=== PATIENT | female | born 2000 | race Caucasian/White ===

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

== ENCOUNTER 2018-06-20 11:35 | Emergency (ER) | payer OTHER ==
[2018-06-20 11:51] VITALS: BMI 32.9
[2018-06-20 12:34] LABS: EPI CELLS 8.3 /HPF (0-5/HPF); PH,URINE 7.5 (5.0-8.0); URINE APPEARANCE CLEAR; URINE BACTERIA 279.6 /hpf (NEGATIVE); URINE BILIRUBIN NEGATIVE (NEGATIVE); URINE CASTS 3 /lpf (0-8); URINE COLOR YELLOW; URINE GLUCOSE (UA) NEGATIVE (NEGATIVE); URINE KETONE NEGATIVE (NEGATIVE); URINE LEUK ESTERASE 1+ (NEGATIVE); URINE NITRITE NEGATIVE (NEGATIVE); URINE PROTEIN NEGATIVE (NEGATIVE); URINE RBC 1 /hpf (0-4); URINE UROBILINOGEN 0.2 mg/dL (0.2-1.0); URINE WBC 6 /hpf (0-5)
--- NOTE | 2018-06-20 12:45 | PDOC ---
History of Present Illness - General Chief Complaint: Pain Stated Complaint: THORACIC PAIN Time Seen by Provider: 06/20/18 12:42 History Source: Patient Exam Limitations: No Limitations - History of Present Illness Initial Comments: 17 yo F w no reported pmh presents to the ER with sudden onset mid back- pain since last night which woke her up from sleep. The pain has been constant and she rates it as 6/10 without radiation. She states it feels like a sharp pain in character. She denies any associated such as shortness of breath, chest pain, abdominal pain, nausea, vomiting, blurry vision or neck pain. She states she experienced very mild bloody vaginal discharge 4 days ago before the back pain began. The patient does not have an OB doc and gets her pre- vitamins from her PCP Dr. Jaramillo. LMP: Mid December PCP: Yoselyn Jaramillo PSH: None reported Social Hx: Denies smoking, Drinking, or other substance usage. Allergies: Cheese Past History - Past Medical History Allergies/Adverse Reactions: Allergies Allergy/AdvReac Type Severity Reaction Status Date / Time cheese Allergy Verified 06/20/18 11:45 No Known Drug Allergies Allergy Verified 06/20/18 11:45 Home Medications: Ambulatory Orders Cephalexin Monohydrate [Keflex -] 500 mg PO BID 7 Days #14 capsule 06/20/18 Asthma: No COPD: No DVT: No Diabetes: No - Reproductive History (#): 2 Para: 0 Cervical CA: No Dysfunctional Uterine Bleeding: No Ectopic : No Endometrial CA: No Polycystic Ovaries: No Therapeutic (s) & number: No Tubal Ligation: No Spontaneous : 1 - Immunization History Immunization Up to Date: Yes - Suicide/Smoking/Psychosocial Hx Smoking History: Never smoked Have you smoked in the past 12 months: No Hx Alcohol Use: No Drug/Substance Use Hx: No Substance Use Type: None Review of Systems - Review of Systems Able to Perform ROS?: Yes Constitutional: No: Chills, Diaphoresis, Fever, Loss of Appetite HEENTM: No: Eye Pain, Blurred Vision Respiratory: No: Shortness of Breath Cardiac (ROS): No: Chest Pain, Palpitations ABD/GI: No: Abdominal Distended, Difficulty Swallowing, Nausea, Poor Appetite, Poor Fluid Intake, Vomiting : No: Burning, Dysuria, Discharge, Frequency, Flank Pain Musculoskeletal: Yes: Back Pain Integumentary: No: Bruising, Change in Color Neurological: No: Headache, Numbness, Paresthesia Psychiatric: No: Anxiety, Depression, Frequent Crying Endocrine: No: Excessive Sweating, Flushing Hematologic/Lymphatic: No: Anemia, Blood Clots, Easy Bleeding *Physical Exam - Vital Signs Last Vital Signs Temp Pulse Resp BP Pulse Ox 97.7 F 84 18 124/74 99 06/20/18 11:49 06/20/18 11:49 06/20/18 11:49 06/20/18 11:49 06/20/18 11:49 - Physical Exam General Appearance: Yes: Nourished, Appropriately Dressed. No: Apparent Distress HEENT: positive: EOMI, DEBBIE, Normal ENT Inspection, Normal Voice, Symmetrical Neck: positive: Supple Respiratory/Chest: positive: Lungs Clear, Normal Breath Sounds. negative: Respiratory Distress Cardiovascular: positive: Regular Rhythm, Regular Rate, S1, S2 Vascular Pulses: Dorsalis-Pedis (R): 2+, Doralis-Pedis (L): 2+ Gastrointestinal/Abdominal: positive: Normal Bowel Sounds, Soft, Other (Gravid) Rectal Exam: positive: deferred Lymphatic: negative: Adenopathy Musculoskeletal: positive: Normal Inspection. negative: CVA Tenderness Extremity: positive: Normal Capillary Refill, Normal Inspection, Normal Range of Motion Integumentary: positive: Normal Color, Dry, Warm Neurologic: positive: shake splitter II-XII NML intact, Fully Oriented, Alert, Normal Mood/ Affect, Normal Response, Motor Strength 5/5 ED Treatment Course - ADDITIONAL ORDERS Additional order review: Laboratory Results 06/20/18 11:51 Urine Color Yellow Urine Appearance Clear Urine pH 7.5 D Ur Specific [place] 1.020 Urine Protein Negative Urine Glucose (UA) Negative Urine Ketones Negative Urine Blood Negative Urine Nitrite Negative Urine Bilirubin Negative Urine Urobilinogen 0.2 Ur Leukocyte Esterase 1+ H Urine WBC (Auto) 6 Urine RBC (Auto) 1 Urine Casts (Auto) 3 U Epithel Cells (Auto) 8.3 Urine Bacteria (Auto) 279.6 Medical Decision Making - Medical Decision Making 17 yo F w no reported pmh presents to the ER with sudden onset mid back- pain since last night which woke her up from sleep. The pain has been constant and she rates it as 6/10 without radiation. She states it feels like a sharp pain in character. She denies any associated such as shortness of breath, chest pain, abdominal pain, nausea, vomiting, blurry vision or neck pain. She states she experienced very mild bloody vaginal discharge 4 days ago before the back pain began. The patient does not have an OB doc and gets her pre- vitamins from her PCP Dr. Jaramillo. VS: WNl DDx IBNLT: MSK back pain, UTI/Pylo, renal colic, PE, distress Plan: UA/UC, US, tylenol, re-assess. Patient can be PERCed out. Wells score 0 UA shows micro UTI - will treat with keflex an DC - Patient sent up to OB to have US and make sure there is no distress. *DC/Admit/Observation/Transfer Diagnosis at time of Disposition: UTI (urinary tract infection) - Discharge Dispostion Disposition: HOME Condition at time of disposition: Stable Decision to Admit order: No - Prescriptions Prescriptions: Cephalexin Monohydrate [Keflex -] 500 mg PO BID 7 Days #14 capsule - Referrals Referrals: Camilo Birmingham MD [Staff Physician] - - Patient Instructions Printed Discharge Instructions: Urinary Tract Infection Additional Instructions: You came into the ER with lower back pain. We looked at your urine which showed you have a UTI. We are sending an antibiotic to your pharmacy - keflex - for you to take twice a day for the next 7 days. Please make sure to follow up with an [facility] doctor in the next 24 to 48 hours to make sure baby is doing well and being taken care of. Come back to the ER immediately if your pain worsens, you become short of breath , or have any other new or worsening concerns. Thank you for coming to the [facility] ER. We hope you feel better soon! Follow up with your OB in [facility] Friday. Return to L&D if you experience any of the following: -regular contractions -decreased movement -vaginal bleeding -your waterbreaks call with any questions or concerns [phone]. Print Language: [place] - Post Discharge Activity
[2018-06-20] MEDS ORDERED: ACETAMINOPHEN 325 MG TABLET (FP) PO ONE (13:00)
[2018-06-20] MEDS ORDERED: ACETAMINOPHEN 325 MG TABLET (FP) ONE (13:04)
[2018-06-20 14:57] VITALS: BP 118/62; PULSE 77; TEMP 98.3
--- NOTE | 2018-06-20 15:00 | PDOC ---
Documentation entered by Tara Jhaveri SCRIBE, acting as scribe for Marciano Garcia MD. Marciano Garcia MD: This documentation has been prepared by the Shakila mcdermott Sammi, SCRIBE, under my direction and personally reviewed by me in its entirety. I confirm that the documentation accurately reflects all work, treatment, procedures, and medical decision making performed by me. Attending Attestation - Resident Resident Name: Neftali Amaya - ED Attending Attestation I have performed the following: I have examined & evaluated the patient, The case was reviewed & discussed with the resident, I agree w/resident's findings & plan - HPI HPI: 06/20/18 13:21 Healthy 17-year-old female at 26 weeks gestation uncomplicated to date, no significant past medical history presents with localized low back pain since yesterday. Patient awoke with a sharp pinpoint discomfort to her lower thoracic/ upper lumbar region, very localized to the midline, worse with sitting and laying down, relieved with ambulation. There is no associated chest pain/ shortness of breath/abdominal complaints/bleeding/discharge/dysuria/frequency/ hematuria. Did not take anything for pain, presents for evaluation. Denies any fall or strain or heavy lifting, no history of recurring back pain. - Physicial Exam PE: 06/20/18 13:23 Vital signs stable, heart rate normal O2 sat 100% on room air Seated comfortably in chair, playing with her boyfriend Speech is clear, no tachypnea Heart is regular, lungs are clear No skin bruising or swelling, area of discomfort around T10 has no reproducible tenderness No edema or calf tenderness - Medical Decision Making 06/20/18 13:24 17-year-old female at 26 weeks gestation presents with atraumatic very localized low back discomfort without any cardiopulmonary complaints or red flags on history or physical exam to suggest infectious or vascular process. Urinalysis shows positive leuk esterase and white blood cells, urine culture sent and we'll treat empirically for UTI and Tylenol given for pain To L+D for monitoring
== END 2018-06-20 15:18 | disposition home or self-care (01) ==
LOC: JER 11:35
DX: O26.892 Other specified pregnancy related conditions, second trimester (principal); O23.32 Infections of other parts of urinary tract in pregnancy, second trimester; Z3A.26 26 weeks gestation of pregnancy
CPT/HCPCS: 81003; 84703; 87086; 99282-25

== ENCOUNTER 2018-09-03 21:41 | Emergency (ER) | payer OTHER ==
[2018-09-04 00:05] VITALS: BP 122/74; PULSE 89; TEMP 98.1
== END 2018-09-04 00:45 | disposition home or self-care (01) ==
LOC: JER 21:41
DX: O26.893 Other specified pregnancy related conditions, third trimester (principal); Z3A.36 36 weeks gestation of pregnancy
CPT/HCPCS: 99281-25

== ENCOUNTER 2020-05-21 12:00 | Inpatient (IN) | payer OTHER ==
[2020-05-21] MEDS ORDERED: AMPICILLIN SODIUM 2 GM VIAL ONE (13:56)
[2020-05-21] MEDS ORDERED: AMPICILLIN - 2 GM in SODIUM CHLORIDE 100 ML IVPB ONE (14:00)
[2020-05-21 14:04] LABS: BASO % 0.5 % (0-2.0); EOS % 0.4 % (0-4.5); HEMATOCRIT 39.2 % (32.4-45.2); HEMOGLOBIN 13.1 GM/dL (10.7-15.3); LYMPH % 17.9 % (8-40); MCH 28.1 pg (25.7-33.7); MCHC 33.4 g/dl (32.0-36.0); MEAN CELL VOLUME 84.3 fl (80-96); MEAN PLT VOLUME 9.4 fl (7.5-11.1); MONO % 4.4 % (3.8-10.2); NEUT % 76.8 % (42.8-82.8); PLATELET COUNT 191 K/MM3 (134-434); RBC 4.64 M/mm3 (3.60-5.2); RDW 14.6 % (11.6-15.6); WHITE BLOOD COUNT 12.6 K/mm3 (4.0-10.0)
[2020-05-21 14:10] LABS: INR 0.89 (0.83-1.09)
[2020-05-21 14:12] LABS: ACTIVATED PTT 28.5 SECONDS (25.2-36.5)
[2020-05-21 14:23] LABS: POTASSIUM 3.8 mmol/L (3.5-5.1)
[2020-05-21 14:24] LABS: BLOOD UREA NITROGEN 11.2 mg/dL (7-18); CALCIUM 9.5 mg/dL (8.5-10.1)
[2020-05-21 14:28] LABS: CREATININE 0.6 mg/dL (0.55-1.3)
[2020-05-21] MEDS ORDERED: LIDOCAINE HCL 1% PRESERVATIVE FREE - 30ML VIAL ONE (14:51)
[2020-05-21] MEDS ORDERED: OXYTOCIN 20 UNITS in 0.9% NS 20 UNIT/1,000 ML INFUS.BAG IV ONE (14:52)
[2020-05-21] MEDS ORDERED: BISACODYL 10 MG SUPP.RECT RC PRN (15:31)
[2020-05-21] MEDS ORDERED: METHYLERGONOVINE MALEATE 0.2 MG/1 ML AMP IM PRN (15:31)
[2020-05-21] MEDS ORDERED: BENZOCAINE 20% 57 GM BOTTLE TP PRN (15:31)
[2020-05-21] MEDS ORDERED: BENZOCAINE 28 GM HEMORRHOIDAL OINTMENT TP PRN (15:31)
[2020-05-21] MEDS ORDERED: oxyCODONE HCL 5 MG TABLET PO PRN (15:31)
[2020-05-21] MEDS ORDERED: ACETAMINOPHEN 325 MG TABLET (FP) PO PRN (15:31)
[2020-05-21] MEDS ORDERED: WITCH HAZEL 50% (TUCKS) 40 PAD/JAR PAD TP PRN (15:31)
[2020-05-21] MEDS ORDERED: IBUPROFEN 600 MG TABLET (FP) PO PRN (15:31)
[2020-05-21] MEDS ORDERED: OXYTOCIN 20 UNITS in 0.9% NS 20 UNIT/1,000 ML INFUS.BAG IV SCH (15:45)
[2020-05-21 15:46] VITALS: BMI 38.5
[2020-05-21] MEDS ORDERED: DEXTROSE 5%-LACTATED RINGERS 1,000 ML IV SCH (16:00)
[2020-05-21 17:13] LABS: HIV INTERPRETATION NEGATIVE (NEGATIVE)
[2020-05-22 08:26] LABS: BASO % 0.2 % (0-2.0); EOS % 0.5 % (0-4.5); HEMATOCRIT 31.4 % (32.4-45.2); HEMOGLOBIN 10.6 GM/dL (10.7-15.3); LYMPH % 19.5 % (8-40); MCH 28.5 pg (25.7-33.7); MCHC 33.6 g/dl (32.0-36.0); MEAN CELL VOLUME 84.7 fl (80-96); MEAN PLT VOLUME 9.3 fl (7.5-11.1); MONO % 4.5 % (3.8-10.2); NEUT % 75.3 % (42.8-82.8); PLATELET COUNT 170 K/MM3 (134-434); RBC 3.71 M/mm3 (3.60-5.2); RDW 14.8 % (11.6-15.6); WHITE BLOOD COUNT 14.2 K/mm3 (4.0-10.0)
[2020-05-22] MEDS: PRENATAL VITAMINS W/ FOLIC ACID TABLET (FP) PO SCH (10:00)
[2020-05-22] MEDS ORDERED: SENNOSIDES/DOCUSATE COMBO (SENNA PLUS) TABLET (UD) PO PRN (22:00)
[2020-05-23 09:30] VITALS: BP 121/79; PULSE 85; TEMP 98.3
[2020-05-23] MEDS: PRENATAL VITAMINS W/ FOLIC ACID TABLET (FP) PO SCH (10:20)
== END 2020-05-23 14:30 | disposition home or self-care (01) | DRG 560 ==
LOC: JDEL 12:00 → JLDR 13:20 → J3W 17:00
PROVIDERS: ADMIT Internal Medicine; ATTEND Internal Medicine
PROC: 10E0XZZ Delivery of Products of Conception, External Approach (ICD-10-PCS; principal; 2020-05-21)
DX: O48.0 Post-term pregnancy (principal); O70.0 First degree perineal laceration during delivery; O69.81X0 Labor and delivery complicated by cord around neck, without compression, not applicable or unspecified; Z3A.40 40 weeks gestation of pregnancy; Z37.0 Single live birth
CPT/HCPCS: 36415; 59409; 80048; 85025; 85610; 85730; 86780; 86850; 86900; 86901; 87389; C9803; U0003; U0005

== ENCOUNTER 2023-01-05 01:04 | Emergency (ER) | payer OTHER ==
[2023-01-05 01:22] VITALS: BP 120/68; PULSE 105; RESP 20; TEMP 99.2; BMI 34.0
== END 2023-01-05 02:48 | disposition home or self-care (01) ==
LOC: JER 01:04
DX: O26.891 Other specified pregnancy related conditions, first trimester (principal); R05.9 Cough, unspecified; O99.511 Diseases of the respiratory system complicating pregnancy, first trimester; J00 Acute nasopharyngitis [common cold]; O98.511 Other viral diseases complicating pregnancy, first trimester; B34.9 Viral infection, unspecified; Z20.822 Contact with and (suspected) exposure to COVID-19; Z3A.01 Less than 8 weeks gestation of pregnancy
CPT/HCPCS: 0241U-QW; 99283-25

== ENCOUNTER 2023-02-02 03:12 | Emergency (ER) | payer OTHER ==
[2023-02-02 03:18] VITALS: BP 120/77; PULSE 77; RESP 18; TEMP 97.6; BMI 34.0
[2023-02-02 04:29] LABS: BASO % 0.2 % (0-2.0); EOS % 1.7 % (0-4.5); HEMOGLOBIN 12.4 GM/dL (10.7-15.3); MCH 28.4 pg (25.7-33.7); MCHC 33.4 g/dl (32.0-36.0); MEAN CELL VOLUME 85.1 fl (80-96); MEAN PLT VOLUME 8.6 fl (7.5-11.1); MONO % 5.3 % (3.8-10.2); NEUT % 59.8 % (42.8-82.8); PLATELET COUNT 244 10^3/uL (134-434); RBC 4.35 M/mm3 (3.60-5.2); RDW 13.7 % (11.6-15.6); WHITE BLOOD COUNT 9.1 K/mm3 (4.0-10.0)
[2023-02-02 04:37] LABS: INR 1.02 (0.83-1.09); PROTHROMBIN TIME (PATIENT) 11.8 SEC (9.7-13.0)
[2023-02-02 06:00] LABS: PH,URINE 6.5 (5.0-8.0); URINE APPEARANCE CLEAR; URINE BILIRUBIN NEGATIVE (NEGATIVE); URINE COLOR YELLOW; URINE GLUCOSE (UA) NEGATIVE (NEGATIVE); URINE KETONE NEGATIVE (NEGATIVE); URINE LEUK ESTERASE NEGATIVE (NEGATIVE); URINE NITRITE NEGATIVE (NEGATIVE); URINE PROTEIN NEGATIVE (NEGATIVE)
== END 2023-02-02 05:17 | disposition home or self-care (01) ==
LOC: JER 03:12
DX: O20.0 Threatened abortion (principal); Z3A.09 9 weeks gestation of pregnancy
CPT/HCPCS: 36415; 81003; 84702; 85025; 85610; 87086; 99283-25

== ENCOUNTER 2023-04-10 20:23 | Emergency (ER) | payer OTHER ==
[2023-04-10 20:33] VITALS: BP 118/75; PULSE 110; RESP 20; TEMP 98.5; BMI 34.0
== END 2023-04-10 21:51 | disposition home or self-care (01) ==
LOC: JERFT 20:23
DX: H92.02 Otalgia, left ear (principal); H66.002 Acute suppurative otitis media without spontaneous rupture of ear drum, left ear; J10.1 Influenza due to other identified influenza virus with other respiratory manifestations; Z20.822 Contact with and (suspected) exposure to COVID-19
CPT/HCPCS: 0241U-QW; 99283-25